=== PATIENT | male | born 1935 | race Caucasian/White ===

== ENCOUNTER 2016-07-16 15:40 | Emergency (ER) | payer BC ==
[2016-07-16 17:22] VITALS: BP 117/71
== END 2016-07-16 17:22 | disposition home or self-care (01) ==
LOC: ED 15:40
DX: M54.9 Dorsalgia, unspecified (principal); J18.9 Pneumonia, unspecified organism; N39.0 Urinary tract infection, site not specified
CPT/HCPCS: J1885; Q0092